=== PATIENT | female | born 1985 | race Caucasian/White ===

== ENCOUNTER 2019-07-13 17:56 | Emergency (ER) | payer BC ==
[~2019-07-13] VITALS: Ht 167.6 cm; Wt 87.7 kg
[~2019-07-13 17:56] MED LIST: BCP TD; BENADRYL25 M2 PO; CIPRO 500MG TA500 MG PO; IBU800 M1 PO; PERCOCET 325 MG1 TA2 PO; PRENATAL1 TA7 PO; PYRIDIUM 100MG100 MG PO
[2019-07-13 17:58] VITALS: TEMP 99.3
[2019-07-13] MEDS ORDERED: TYLENOL 325MG325 MG PO (18:13)
[2019-07-13 18:29] LABS: COLLECTION METHOD CLEAN CATCH
[2019-07-13 18:36] LABS: PH 7 (5-8); URINE APPEARANCE Hazy; URINE BACTERIA None Seen /hpf; URINE BILIRUBIN Negative (NEGATIVE); URINE BLOOD Negative (NEGATIVE); URINE COLOR Yellow; URINE GLUCOSE Negative (NEGATIVE); URINE KETONE Negative (NEGATIVE); URINE LEUKOCYTE ESTERASE Negative (NEGATIVE); URINE NITRATE Negative (NEGATIVE); URINE PROTEIN(semi-quant) Negative (NEGATIVE); URINE RBC 0-2 /hpf; URINE UROBILINOGEN Negative (NEGATIVE)
[2019-07-13 19:17] LABS: BASO % 0.2 % (0.0-2.0); EOS # 0.2 (0.0-0.7); EOS % 1.5 % (0-4.0); GRAN # 11.2 (1.4-6.5); GRAN % 77.7 % (42.2-75.2); HEMATOCRIT 34.3 % (37.0-47.0); HEMOGLOBIN 12.1 g/dl (12.5-16.0); LYMPH # 1.7 (1.2-3.4); LYMPH % 11.5 % (20.0-51.0); MEAN CELL VOLUME 88 fl (80.0-100.0); MEAN CORPUSCULAR HEMOGLOBIN 31 pg (27.0-31.0); MEAN CORPUSCULAR HGB CONC 35 g/dl (33.0-37.0); MEAN PLATELET VOLUME 9.9 fl (7.4-10.4); MONO # 1.1 (0.1-0.6); MONO % 7.4 % (1.7-9.3); PLATELET COUNT 260 K/mm3 (130-400); RED BLOOD COUNT 3.89 M/mm3 (4.10-5.30)
[2019-07-13 19:18] LABS: ALBUMIN 3.6 gm/dL (3.5-5.0); BILIRUBIN,TOTAL 0.1 mg/dL (0.0-1.0); C-REACTIVE PROTEIN 3.9 mg/dL (0.0-0.9); CALCIUM 8.5 mg/dL (8.4-10.2); CREATININE, serum 0.55 (0.52-1.25); POTASSIUM 3.6 mmol/L (3.4-5.0); TOTAL PROTEIN 6.6 gm/dL (6.4-8.2)
[2019-07-13] MEDS ORDERED: ZITHROMAX 250M250 MG PO (20:21)
[2019-07-13] MEDS ORDERED: TUSS PO (21:06)
[2019-07-13 21:08] VITALS: BP 126/79; PULSE 107
== END 2019-07-13 21:12 | disposition home or self-care (01) ==
LOC: COL.ER 17:56
PROVIDERS: Emergency Medicine
DX: O99.513 Diseases of the respiratory system complicating pregnancy, third trimester (principal); J20.9 Acute bronchitis, unspecified; Z3A.32 32 weeks gestation of pregnancy
CPT/HCPCS: J1100; J7030

== ENCOUNTER 2019-09-01 09:52 | Inpatient (IN) | payer BC ==
[~2019-09-01] VITALS: Ht 167.6 cm; Wt 93.2 kg
[2019-09-01] VITALS (26 sets, daily range): BP systolic 104–144; BP diastolic 56–80; PULSE 66–93; TEMP 97.3–98.4
[~2019-09-01 09:52] MED LIST changes: +PRENATAL FORMU1 EAC3 PO; -PRENATAL1 TA7 PO; +TUSS PO; +TYLENOL 325MG325 MG PO; +ZITHROMAX 250M250 MG PO
--- NOTE | 2019-09-01 10:00 | NUR ---
Patient ambulatory onto unit for labor check. Patient reports contractions throughout the night, approximately every 5-7 minutes. States they have spaced out to every 5-12 minutes but is now having bloody show. Patient reports good movement, denies leaking of fluid. , 39.2wks. GBS-. Denies or medical complications. Patient scheduled for induction on Monday 09/03 EFMs on, VS taken. SVE /-2. Assessment completed. Will notify for further orders. at bedside. Call light within reach.
--- NOTE | 2019-09-01 11:10 | NUR ---
SVE /-2. Patient reports contractions are getting more frequent and intense. Will notify for orders.
[2019-09-01 12:08] LABS: BASO % 0.2 % (0.0-2.0); EOS # 0.1 (0.0-0.7); GRAN # 9.4 (1.4-6.5); GRAN % 74.6 % (42.2-75.2); HEMOGLOBIN 12.3 g/dl (12.5-16.0); MEAN CELL VOLUME 89 fl (80.0-100.0); MEAN CORPUSCULAR HEMOGLOBIN 31 pg (27.0-31.0); MEAN CORPUSCULAR HGB CONC 35 g/dl (33.0-37.0); MEAN PLATELET VOLUME 10.6 fl (7.4-10.4); MONO # 0.9 (0.1-0.6); MONO % 7.3 % (1.7-9.3); PLATELET COUNT 265 K/mm3 (130-400); REDCELL DISTRIBUTION WIDTH-CV 12.9 % (11.5-14.5)
[2019-09-01 12:09] LABS: HEMATOCRIT 35.4 % (37.0-47.0)
--- NOTE | 2019-09-01 12:25 | NUR ---
Patient breathing through contractions. Requesting epidural at this time. Will notify Lakesha MATA about request for epidural placement. IV bolus started.
--- NOTE | 2019-09-01 12:50 | NUR ---
1250: Lakesha MATA at bedside. Patient sitting up for epidural placement. 1257: Lidocaine. 1300: Epidural Catheter placed. 1301: Test Dose given by Lakesha MATA, no adverse reactions noted. 1307: Patient repositioned to left tilt. SVE 5/-1.
--- NOTE | 2019-09-01 13:30 | NUR ---
[id number]: Variable deceleration into 60bpm x 90sec noted. Patient repositioned to left lateral, then right lateral. IV bolus started. SVE 6/90/-1. FHR returns to baseline of 150bpm x 30sec. Variable deceleration into 60bpm again noted for 110sec. SVE unchanged at 6/90/-1. FSE placed. O2 on via face mask. Patient repositioned into knee/chest position. FHR slowly returns to baseline of 150bpm. Variable deceleration gradually into 90s noted x 30sec. FHR returns to baseline of 150bpm. O2 remains on via face mask and patient remains in knee chest position at this time. notified of decelerations, no new orders. 1340: Patient repositioned to left lateral. Will continue to monitor closely.
--- NOTE | 2019-09-01 13:45 | NUR ---
Patient comfortable with epidural. FHR now reassuring. Bañuelos catheter placed. SVE /-1. Patient encouraged to rest. Instructed to notify RN with rectal pressure or urge to push. Call light within reach.
--- NOTE | 2019-09-01 15:15 | NUR ---
1440: Patient reports increased pain and urge to push. SVE Complete/+1. 1441: notified of SVE, requested on unit for delivery. 1457: at bedside. Sarmad pretty'omero. 1500: Initial push. 1505: Vacuum on. One pop off noted. 1506: Vacuum on. One pop off noted. 1507: Vacuum assisted vaginal delivery of viable male infant assisted by at this time. Infant to abdomen, care assumed by Heber MCLAUGHLIN. 1509: Spontaneous vaginal delivery of placenta assisted by . Pitocin infusing at 333ml/hr. Fundus firm, scant lochia noted. Red Jun catheter used to drain bladder, small amount of urine noted. 2nd degree laceration repaired using 2-[address]-1 by . 1515: Recovery period started. Fundus firm, scant lochia.
--- NOTE | 2019-09-01 17:15 | NUR ---
Patient eating regular diet, tolerating well. Unable to lift left leg off of bed. Will reevaluate after patient finishes eating.
--- NOTE | 2019-09-01 17:45 | NUR ---
Patient still unable to lift and hold left leg. Bladder distended. Straight catheter used to drain 900ml clear yellow urine. Fundus firm, lochia WNL. Infant returns to room from bath. Infant to breast. Will reevaluate left leg after patient finishes . at bedside. Call light within reach.
[2019-09-02 03:55] VITALS: BP 115/67; PULSE 82; TEMP 98.5
[2019-09-02] MEDS ORDERED: MOTRIN 800800 MG/TAB PO (07:27)
[2019-09-02] MEDS ORDERED: PERCOCET 325 MG1 TA2 PO (07:27)
[2019-09-02 07:35] VITALS: BP 130/82; PULSE 74; TEMP 97.5
--- NOTE | 2019-09-02 10:33 | NUR ---
Initial visit; Parents thanked [employer] for offering congratulations and God's blessing for their family for the of their son. [employer] thanked family for choosing [facility].
[2019-09-02 12:00] VITALS: BP 116/69; PULSE 72; TEMP 98
[2019-09-02 17:00] VITALS: BP 114/67; PULSE 77; TEMP 97.6
== END 2019-09-02 17:45 | disposition home or self-care (01) | DRG 807 ==
LOC: LDRO 09:52 → LDR 10:00 → OB 18:30
PROVIDERS: ADMIT Obstetrics & Gynecology
PROC: 10D07Z6 Extraction of Products of Conception, Vacuum, Via Natural or Artificial Opening (ICD-10-PCS; principal; 2019-09-01)
PROC: 0KQM0ZZ Repair Perineum Muscle, Open Approach (ICD-10-PCS; 2019-09-01)
DX: O69.81X0 Labor and delivery complicated by cord around neck, without compression, not applicable or unspecified (principal); Z37.0 Single live birth; Z3A.39 39 weeks gestation of pregnancy; O76 Abnormality in fetal heart rate and rhythm complicating labor and delivery; O70.1 Second degree perineal laceration during delivery
CPT/HCPCS: J2405; J2590; J7120

== ENCOUNTER → 2021-06-07 | Outpatient (CLI) | payer BC ==
[~2021-06-07] MED LIST changes: +MOTRIN 800800 MG/TAB PO
== END ==
LOC: MC.RAD 07:00
DX: N60.02 Solitary cyst of left breast (principal)

== ENCOUNTER → 2021-06-18 | Outpatient (CLI) | payer BC | LOC: MC.RAD 07:58 | DX: R92.8 Other abnormal and inconclusive findings on diagnostic imaging of breast (principal); Z98.890 Other specified postprocedural states ==